=== PATIENT | male | born 1965 | race Caucasian/White ===

== ENCOUNTER 2020-10-01 07:07 | Day surgery (SDC) | payer OTHER ==
[2020-09-27 10:55] VITALS: BMI 39.0
--- NOTE | 2020-09-27 11:11 | RAD REPORT ---
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 COMPARISON: No comparisons FINDINGS: The lungs are grossly clear. The heart is normal in size. There is evidence of several old left lateral rib fractures. Small left pleural effusion or left pleural thickening is present.
[2020-09-27 11:46] LABS: Absolute Lymphocytes (CBC) 1.6 K/uL (0.7-4.9); Basophils % 0.6 % (0-1.3); Hematocrit 44.5 % (39.6-49.0); Lymphocytes % 14.3 % (15.3-44.8); MPV 8.6 fL (7.6-11.3); RBC Red Blood Cell Count 5.04 M/uL (4.33-5.43)
[2020-09-27 11:59] LABS: Potassium 4.1 mmol/L (3.5-5.1)
[2020-09-27 12:37] LABS: Protime INR 1.03
[~2020-10-01 07:07] MED LIST: HEPA 1000U/500MLS 1,000 UNIT/500 ML BAG IV ONE; LIDOCAINE 1% 20 ML MDV ONE; NA CHLORIDE 0.9% 500 ML ONE
[2020-10-01] MEDS ORDERED: MIDAZOLAM HCL 2 MG/2 ML INJ ONE ×3 (07:23→07:59)
[2020-10-01] MEDS ORDERED: FENTANYL CITR 100 MCG/2 ML ONE (07:24)
[2020-10-01] MEDS ORDERED: NA CHLORIDE 0.9% 0 ML ONE (07:24)
[2020-10-01] MEDS ORDERED: ATROPINE SULF 1 MG/10 ML SYR IV ONE (07:24)
[2020-10-01] MEDS ORDERED: ACETYLCYST 20% 4 ML VIAL IH ONE (08:16)
[2020-10-01 10:17] VITALS: BP 140/86; O2SAT 96
[2020-10-01 10:18] VITALS: TEMP 97
--- NOTE | 2020-10-01 19:12 | OP ---
Surgeon: Gabe Lara MD Warp Hand: Kamaljit Bowles. Reason For Admission: Unstable angina. Procedure In Detail: The patient was prepped and draped in routine sterile fashion. Given Versed an d fentanyl for sedation. A 6-Cypriot sheath was introduced in the right common femoral artery success fully. Angiography there was normal. StarClose was used to close the case. Yariel catheters 6-Luis nch left and right were used to cannulate the left main and right main respectively. He was RCA jeffrey nant. He had about a 30% to 40% stenosis in the mid RCA, diffuse plaquing. Circumflex was normal. The left main was normal, but he had a 70% mid LAD stenosis. The first diagonal was a large vessel w ith a 70% to 80% stenosis. The patient tolerated the procedure well. There were no complications. Blood Loss: 5 mL. Postoperative Diagnosis: Severe coronary artery disease. The plan for the staged angioplasty and stent of both the diagonal and LAD. He has a creatinine of a lmost 1.5. He had gotten significant amount of contrast already today to get good views. I will hyd rate him. I will give him Mucomyst. I will hold metformin, bring him back in 48 hours to do the int ervention. Anesthesia: Total conscious sedation was 45 minutes. NB/MODL Voice ID: [id number] Report ID: [id number]
== END 2020-10-01 10:15 | disposition home or self-care (01) ==
LOC: CCL 07:07
DX: I25.110 Atherosclerotic heart disease of native coronary artery with unstable angina pectoris (principal); Z88.3 Allergy status to other anti-infective agents
CPT/HCPCS: 85025; 80048; 36415; 85610; 82947; 85730; 71046; 93454; U0003; C1893; J2250 ×3; J3010; J7040; J1644; J0583

== ENCOUNTER 2020-10-02 06:53 | Emergency (ER) | payer OTHER ==
--- OUTSIDE RECORDS SUMMARY | 2020-10-02 06:56 | XMS REPORT | Continuity of Care Document ---
:1965 Author Organization [facility] t Address [address] [place] [address] Dr. Gonzales. [address] [place] [address] Care Team Providers Name Role Phone Unavailable Unavailable Unavailable Problems This patient has no known problems. Allergies, Adverse Reactions, Alerts This patient has no known allergies or adverse reactions. Medications This patient has no known medications. Procedures This patient has no known procedures. Results This patient has no known results.
[2020-10-02] MEDS ORDERED: NA CHLORIDE 0.9% 1,000 ML ONE (08:09)
[2020-10-02 08:33] LABS: Protime INR 1.01
[2020-10-02 08:35] LABS: Basophils % 0.3 % (0-1.3); Hematocrit 49.2 % (39.6-49.0); Lymphocytes % 8.7 % (15.3-44.8); MPV 8.5 fL (7.6-11.3); RBC Red Blood Cell Count 5.51 M/uL (4.33-5.43)
--- NOTE | 2020-10-02 08:39 | RAD REPORT ---
EXAM DESCRIPTION: Tang Single View10/02/2020 8:31 am CLINICAL HISTORY: Cough COMPARISON: August 2020 FINDINGS: Left pleural thickening with old left rib fractures. The lungs appear clear of acute infiltrate. The heart is normal size IMPRESSION: No acute abnormalities displayed
--- NOTE | 2020-10-02 08:49 | EDPHYS ---
Physician Documentation [facility] Name: Ezequiel Oliveira Age: 55 yrs Sex: Male : 1965 Arrival Date: 10/02/2020 Time: 06:55 Bed 8 Private MD: ED Physician Laurent Sharma HPI: 10/02 08:44 This 55 yrs old Male presents to ER via Ambulatory with complaints of Hives, abdirahman Elevated Pulse- CATH yest 10/01. 08:44 The patient's rash thought to be caused by an unknown cause. The rash is located on the abdirahman body diffusely. The rash can be described as erythematous. Onset: The symptoms/episode began/occurred last night. Associated signs and symptoms: Pertinent positives: burning sensation, itching. Severity of symptoms: At their worst the symptoms were mild moderate in the emergency department the symptoms have improved mildly. The patient presents with a history of heart racing. Context: The symptoms occur at rest. Duration: The patient or guardian reports a single episode, that is still ongoing, but improving. Historical: - Allergies: 07:31 Clindamycin; bb - Home Meds: 07:31 amlodipine oral [Active]; Zoloft Oral [Active]; Wellbutrin Oral [Active]; chol med bb [Active]; fluid pill [Active]; Fish Oil oral oral [Active]; - PMHx: 07:31 CAD; Hyperlipidemia; Hypertension; Depression; bb - PSHx: 07:31 heart cath; bb - Immunization history:: Adult Immunizations up to date. - Social history:: Smoking status: Patient denies any tobacco usage or history of. - Family history:: not pertinent. ROS: 08:44 Constitutional: Negative for fever, chills, and weight loss, Eyes: Negative for injury, abdirahman pain, redness, and discharge, ENT: Negative for injury, pain, and discharge, Neck: Negative for injury, pain, and swelling, Cardiovascular: Negative for chest pain, palpitations, and edema, Respiratory: Negative for shortness of breath, cough, wheezing, and pleuritic chest pain, Abdomen/GI: Negative for abdominal pain, nausea, vomiting, diarrhea, and constipation, Back: Negative for injury and pain, : Negative for injury, bleeding, discharge, and swelling, MS/Extremity: Negative for injury and deformity, Neuro: Negative for headache, weakness, numbness, tingling, and seizure, Psych: Negative for depression, anxiety, suicide ideation, homicidal ideation, and hallucinations, Allergy/Immunology: Negative for hives, rash, and allergies, Endocrine: Negative for neck swelling, polydipsia, polyuria, polyphagia, and marked weight changes, Hematologic/Lymphatic: Negative for swollen nodes, abnormal bleeding, and unusual bruising. 08:44 Skin: Positive for rash. Exam: 08:44 Constitutional: This is a well developed, well nourished patient who is awake, alert, abdirahman and in no acute distress. Head/Face: Normocephalic, atraumatic. Eyes: Pupils equal round and reactive to light, extra-ocular motions intact. Lids and lashes normal. Conjunctiva and sclera are non-icteric and not injected. Cornea within normal limits. Periorbital areas with no swelling, redness, or edema. ENT: Nares patent. No nasal discharge, no septal abnormalities noted. Tympanic membranes are normal and external auditory canals are clear. Oropharynx with no redness, swelling, or masses, exudates, or evidence of obstruction, uvula midline. Mucous membranes moist. Neck: Trachea midline, no thyromegaly or masses palpated, and no cervical lymphadenopathy. Supple, full range of motion without nuchal rigidity, or vertebral point tenderness. No Meningismus. Chest/axilla: Normal chest wall appearance and motion. Nontender with no deformity. No lesions are appreciated. Cardiovascular: Regular rate and rhythm with a normal S1 and S2. No gallops, murmurs, or rubs. Normal PMI, no JVD. No pulse deficits. Respiratory: Lungs have equal breath sounds bilaterally, clear to auscultation and percussion. No rales, rhonchi or wheezes noted. No increased work of breathing, no retractions or nasal flaring. Abdomen/GI: Soft, non-tender, with normal bowel sounds. No distension or tympany. No guarding or rebound. No evidence of tenderness throughout. Back: No spinal tenderness. No costovertebral tenderness. Full range of motion. Male : Normal genitalia with no discharge or lesions. MS/ Extremity: Pulses equal, no cyanosis. Neurovascular intact. Full, normal range of motion. Neuro: Awake and alert, GCS 15, oriented to person, place, time, and situation. Cranial nerves II-XII grossly intact. Motor strength 5/5 in all extremities. Sensory grossly intact. Cerebellar exam normal. Normal gait. Psych: Awake, alert, with orientation to person, place and time. Behavior, mood, and affect are within normal limits. 08:44 Musculoskeletal/extremity: DVT Exam: No signs of deep vein thrombosis. no pain, no swelling, no tenderness, negative Homans' sign noted on exam, no appreciated bluish discoloration, no erythema, no increased warmth. 08:44 Skin: Appearance: Color: normal in color, Temperature: normal temperature, Moisture: normal moisture, petechiae, not noted, ecchymosis, not noted, flushing, not noted, diaphoresis is not appreciated. 08:53 ECG was reviewed by the Attending Physician. [facility] Vital Signs: 07:25 BP 118 / 87; Pulse 112; Resp 18 S; Temp 97.6(TE); Pulse Ox 99% on R/A; Weight 127.01 kg bb (R); Height 5 ft. 11 in. (180.34 cm) (R); Pain 0/10; 07:40 BP 114 / 81; Pulse 107; Resp 22; Pulse Ox 98% ; bp 09:39 BP 127 / 86; Pulse 93; Resp 18; Pulse Ox 98% on R/A; Pain 0/10; ll1 07:25 Body Mass Index 39.05 (127.01 kg, 180.34 cm) MDM: 07:43 Patient medically screened. [facility] 08:46 Differential diagnosis: arrythmia, dehydration. Data reviewed: vital signs, nurses [facility] notes, lab test result(s), EKG, radiologic studies, plain films. 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 Test interpretation: by ED physician or midlevel provider: ECG, plain radiologic studies. Counseling: I had a detailed discussion with the patient and/or guardian regarding: the historical points, exam findings, and any diagnostic results supporting the discharge/admit diagnosis, lab results. 10/02 07:44 Order name: Basic Metabolic Panel; Complete Time: 09:18 [facility] 10/02 07:44 Order name: CBC with Diff; Complete Time: 08:43 [facility] 10/02 07:44 Order name: LFT's; Complete Time: 09:18 [facility] 10/02 07:44 Order name: Magnesium; Complete Time: 09:18 [facility] 10/02 07:44 Order name: NT PRO-BNP; Complete Time: 09:18 [facility] 10/02 07:44 Order name: PT-INR; Complete Time: 08:43 [facility] 10/02 07:44 Order name: Troponin (emerg Dept Use Only); Complete Time: 09:18 [facility] 10/02 07:44 Order name: XRAY Chest (1 view); Complete Time: 08:43 [facility] 10/02 07:44 Order name: TSH; Complete Time: 09:18 [facility] 10/02 07:44 Order name: EKG; Complete Time: 07:45 [facility] 10/02 07:44 Order name: Cardiac monitoring; Complete Time: 07:59 [facility] 10/02 07:44 Order name: EKG - Nurse/Tech; Complete Time: 07:59 [facility] 10/02 07:44 Order name: IV Saline Lock; Complete Time: 08:11 [facility] 10/02 07:44 Order name: Labs collected and sent; Complete Time: 08:12 [facility] 10/02 07:44 Order name: O2 Per Protocol; Complete Time: 08:01 [facility] 10/02 07:44 Order name: O2 Sat Monitoring; Complete Time: 08:01 [facility] EC:53 Rate is 100 beats/min. Rhythm is regular. QRS [place] is Normal. CA interval is normal. [facility] QRS interval is normal. QT interval is normal. No Q waves. T waves are Normal. No ST changes noted. Clinical impression: Normal ECG and No evidence of ischemia. Interpreted by me. Reviewed by me. Administered Medications: 08:11 Drug: NS 0.9% 1000 ml Route: IV; Rate: 1 bolus; Site: right antecubital; ll1 09:40 Follow up: Response: No adverse reaction; IV Status: Completed infusion; IV Intake: ll1 980ml 08:55 Drug: SOLU-Medrol (methylPrednisoLONE) 125 mg Route: IVP; Site: right antecubital; ll1 09:28 Follow up: Response: No adverse reaction; RASS: Alert and Calm (0) ll1 08:55 Drug: Benadryl (diphenhydrAMINE) 25 mg Route: IVP; Site: right antecubital; ll1 09:29 Follow up: Response: No adverse reaction; RASS: Alert and Calm (0) ll1 08:55 Drug: Pepcid (famotidine) 40 mg Route: IVP; Site: right antecubital; 1 09:29 Follow up: Response: No adverse reaction; RASS: Alert and Calm (0) 1 09:05 Drug: predniSONE 60 mg Route: PO; ll1 09:29 Follow up: Response: No adverse reaction; RASS: Alert and Calm (0) ll1 Disposition: 10/02/20 08:49 Discharged to Home. Impression: Urticaria, unspecified - Hives. - Condition is Stable. - Discharge Instructions: Allergies, Adult, Hives, Hives, [id number], Allergies, [id number]. - Prescriptions for Hydroxyzine HCl 50 mg Oral Tablet - take 1 tablet by ORAL route every 8 hours As needed; 20 tablet. Pepcid 20 mg Oral Tablet - take 1 tablet by ORAL route every 12 hours for 10 days; 20 tablet. Prednisone 20 mg Oral Tablet - take 2 tablet by ORAL route once daily for 5 days; 10 tablet. EpiPen 0.3 mg Injection auto- injector - inject 1 pen by INTRAMUSCULAR route as directed Inject into the outer portion of the thigh, through clothing if necessary. Indicated in the emergency treatment of allergic reactions; 1 box. - Medication Reconciliation Form, Thank You Letter, Antibiotic Education, Prescription Opioid Use form. - Follow up: Private Physician; When: 1 - 2 days; Reason: Recheck today's complaints, Continuance of care, Re-evaluation by your physician. Follow up: Gabe Lara MD; When: 1 - 2 days; Reason: Recheck today's complaints, Continuance of care, Re-evaluation by your physician. - Problem is new. - Symptoms have improved. Signatures: Dispatcher [employer] EDMS Laurent Sharma MD MD cha Ballard, Brenda, RN RN Maira Motta RN RN ll1 Corrections: (The following items were deleted from the chart) 09:40 07:44 Urine Dipstick-Ancillary ordered. abdirahman bullard 09:41 08:49 10/02/2020 08:49 Discharged to Home. Impression: Urticaria, unspecified - Hives. ll1 Condition is Stable. Forms are Medication Reconciliation Form, Thank You Letter, Antibiotic Education, Prescription Opioid Use. Follow up: Private Physician; When: 1 - 2 days; Reason: Recheck today's complaints, Continuance of care, Re-evaluation by your physician. Follow up: Gabe Lara; When: 1 - 2 days; Reason: Recheck today's complaints, Continuance of care, Re-evaluation by your physician. Problem is new. Symptoms have improved. abdirahman
--- NOTE | 2020-10-02 08:49 | ER ---
Nurse's Notes [facility] Name: Ezequiel Oliveira Age: 55 yrs Sex: Male : 1965 Arrival Date: 10/02/2020 Time: 06:55 Bed 8 Private MD: Diagnosis: Urticaria, unspecified-Hives Presentation: 10/02 07:25 Chief complaint: Patient states: pt had a heart cath yesterday and woke up in [facility] bb last night. Coronavirus screen: At this time, the client does not indicate any symptoms associated with coronavirus-19. Ebola Screen: No symptoms or risks identified at this time. Onset: The symptoms/episode began/occurred yesterday. Anaphylaxis evaluation, no signs or symptoms of anaphylaxis were noted. Initial Sepsis Screen: Does the patient meet any 2 criteria? No. Patient's initial sepsis screen is negative. Does the patient have a suspected source of infection? No. Patient's initial sepsis screen is negative. Risk Assessment: Do you want to hurt yourself or someone else? Patient reports no desire to harm self or others. Onset of symptoms was October 01, 2020. 07:25 Method Of Arrival: Ambulatory bb 07:25 Acuity: GILDA 4 bb Triage Assessment: 07:35 General: Appears distressed, uncomfortable, obese, Behavior is cooperative, appropriate bp for age, anxious. Pain: Denies pain. EENT: No deficits noted. Neuro: No deficits noted. Cardiovascular: Rhythm is sinus tachycardia. Respiratory: Airway is patent Respiratory effort is even, unlabored, Respiratory pattern is regular, symmetrical. GI: No signs and/or symptoms were reported involving the gastrointestinal system. : No signs and/or symptoms were reported regarding the genitourinary system. Derm: Rash noted that is raised, urticaria, on chest and abdomen. Musculoskeletal: No deficits noted. Historical: - Allergies: 07: Clindamycin; bb - Home Meds: :31 amlodipine oral [Active]; Zoloft Oral [Active]; Wellbutrin Oral [Active]; chol med bb [Active]; fluid pill [Active]; Fish Oil oral oral [Active]; - PMHx: 07:31 CAD; Hyperlipidemia; Hypertension; Depression; bb - PSHx: : heart cath; bb - Immunization history:: Adult Immunizations up to date. - Social history:: Smoking status: Patient denies any tobacco usage or history of. - Family history:: not pertinent. Screenin:39 Abuse screen: Denies threats or abuse. Denies injuries from another. Nutritional bp screening: No deficits noted. Tuberculosis screening: No symptoms or risk factors identified. Fall Risk None identified. Assessment: 07:39 General: SEE TRIAGE NOTE. Respiratory: Airway is patent Breath sounds are clear bp bilaterally. 08:00 Reassessment: No changes from previously documented assessment. Patient and/or family ll1 updated on plan of care and expected duration. Pain level reassessed. 09:00 Reassessment: No changes from previously documented assessment. Patient and/or family ll1 updated on plan of care and expected duration. Pain level reassessed. Patient is alert, oriented x 3, equal unlabored respirations, skin warm/dry/pink. Patient states feeling better. Vital Signs: 07:25 BP 118 / 87; Pulse 112; Resp 18 S; Temp 97.6(TE); Pulse Ox 99% on R/A; Weight 127.01 kg bb (R); Height 5 ft. 11 in. (180.34 cm) (R); Pain 0/10; 07:40 BP 114 / 81; Pulse 107; Resp 22; Pulse Ox 98% ; bp 09:39 BP 127 / 86; Pulse 93; Resp 18; Pulse Ox 98% on R/A; Pain 0/10; ll1 07:25 Body Mass Index 39.05 (127.01 kg, 180.34 cm) ED Course: 06:55 Patient arrived in ED. as 07:28 Triage completed. bb 07:31 Arm band placed on Patient placed in an exam room, on a stretcher, on pulse oximetry. bb 07:32 Domingo Melgar, MICHAEL is Primary Nurse. bp 07:39 Patient has correct armband on for positive identification. Bed in low position. Call bp light in reach. Side rails up X2. 07:43 Laurent Sharma MD is Attending Physician. abdirahman 07:50 Inserted saline lock: 22 gauge in right antecubital area, using aseptic technique. ll1 Blood collected. 08:28 XRAY Chest (1 view) In Process Unspecified. EDMS 08:48 Gabe Lara MD is Referral Physician. abdirahman 09:39 No provider procedures requiring assistance completed. IV discontinued, intact, ll1 bleeding controlled, No redness/swelling at site. Pressure dressing applied. Patient maintains SpO2 saturation greater than 95% on room air. Administered Medications: 08:11 Drug: NS 0.9% 1000 ml Route: IV; Rate: 1 bolus; Site: right antecubital; ll1 09:40 Follow up: Response: No adverse reaction; IV Status: Completed infusion; IV Intake: ll1 980ml 08:55 Drug: SOLU-Medrol (methylPrednisoLONE) 125 mg Route: IVP; Site: right antecubital; ll1 09:28 Follow up: Response: No adverse reaction; RASS: Alert and Calm (0) ll1 08:55 Drug: Benadryl (diphenhydrAMINE) 25 mg Route: IVP; Site: right antecubital; ll1 09:29 Follow up: Response: No adverse reaction; RASS: Alert and Calm (0) ll1 08:55 Drug: Pepcid (famotidine) 40 mg Route: IVP; Site: right antecubital; ll1 09:29 Follow up: Response: No adverse reaction; RASS: Alert and Calm (0) ll1 09:05 Drug: predniSONE 60 mg Route: PO; ll1 09:29 Follow up: Response: No adverse reaction; RASS: Alert and Calm (0) ll1 Intake: 09:40 IV: 980ml; Total: 980ml. ll1 Outcome: 08:49 Discharge ordered by . abdirahman 09:39 Discharged to home ambulatory. ll1 09:39 Condition: stable 09:39 Discharge instructions given to patient, Instructed on discharge instructions, follow up and referral plans. medication usage, Demonstrated understanding of instructions, follow-up care, medications, Prescriptions given X 4. 09:41 Patient left the ED. ll1 Signatures: Dispatcher [employer] EDMS Laurent Sharma MD MD cha Martinez, Amelia as Ballard, Brenda, RN RN bb Peltier, Brian, RN RN bp Lewis, Lynsay, RN RN ll1
[2020-10-02 08:52] LABS: ALT/SGPT 34 U/L (12-78); AST/SGOT 15 U/L (15-37); Albumin 3.6 g/dL (3.4-5.0); Alkaline Phosphatase 121 U/L (45-117); BUN Blood Urea Nitrogen 19 mg/dL (7-18); Bicarbonate 28 mmol/L (21-32); Bilirubin Direct 0.1 mg/dL (0-0.2); Bilirubin Total 0.5 mg/dL (0.2-1.0); Glucose Level 117 mg/dL (74-106); Magnesium 1.9 mg/dL (1.8-2.4); NT PRO-BNP 11 pg/mL (<125); Potassium 4.1 mmol/L (3.5-5.1); Protein, Total 7.6 g/dL (6.4-8.2); Sodium Level 139 mmol/L (136-145); Troponin (Emerg Dept Use Only) < 0.02 ng/mL (0.0-0.045)
[2020-10-02] MEDS ORDERED: FAMOTIDINE 20 MG/2 ML VIAL IV ONE (09:05)
[2020-10-02] MEDS ORDERED: DIPHENHYDRAMINE 50 MG/ML VIAL ONE (09:05)
[2020-10-02] MEDS ORDERED: METHYLPREDNISOLONE 125 MG INJ ONE (09:05)
[2020-10-02] MEDS ORDERED: predniSONE 20 MG TAB ONE (09:21)
[2020-10-02 09:47] VITALS: TEMP 97.6
[2020-10-02 09:49] VITALS: O2SAT 98
[2020-10-02 09:51] VITALS: BP 127/86
--- NOTE | 2020-10-03 07:20 | EKG ---
Test Date: 2020-10-02 Test Time: 07:56:18 Personal Financial Advisor: ARMIDAL MEASUREMENT RESULTS: Intervals: Rate: 100 NC: 150 QRSD: 94 QT: 340 QTc: 438 [place]: P: 38 NC: 150 QRS: 39 T: 4 INTERPRETIVE STATEMENTS: Normal sinus rhythm Normal ECG No previous ECG available for comparison Electronically Signed On 10-03-20 07:18:08 CDT by Gabe Lara
== END 2020-10-02 09:41 | disposition home or self-care (01) ==
LOC: ER 06:53
DX: L50.9 Urticaria, unspecified (principal); I10 Essential (primary) hypertension; I25.10 Atherosclerotic heart disease of native coronary artery without angina pectoris; E78.5 Hyperlipidemia, unspecified; F32.9 Major depressive disorder, single episode, unspecified; Z88.3 Allergy status to other anti-infective agents
CPT/HCPCS: 96361; 93005; 85025; 80048; 36415; 83735; 85610; 80076; 84443; 84484; 83880; 71045; 96375; 96374; 99285; J1200; J7512; J7030; J2930

== ENCOUNTER 2020-10-03 06:56 | Day surgery (SDC) | payer OTHER ==
[2020-10-03] MEDS ORDERED: NA CHLORIDE 0.9% 500 ML ONE (07:18)
[2020-10-03] MEDS ORDERED: MIDAZOLAM HCL 2 MG/2 ML INJ ONE ×3 (07:50→08:04)
[2020-10-03] MEDS ORDERED: HEPA 1000U/500MLS 1,000 UNIT/500 ML BAG IV ONE (07:50)
[2020-10-03] MEDS ORDERED: DIPHENHYDRAMINE 50 MG/ML VIAL ONE (07:50)
[2020-10-03] MEDS ORDERED: METHYLPREDNISOLONE 125 MG INJ ONE (07:50)
[2020-10-03] MEDS ORDERED: NITROGLYCERIN 100 MCG/ML SYR (for cath lab use only) IV ONE (07:51)
[2020-10-03] MEDS ORDERED: NA CHLORIDE 0.9% 50 ML ONE (07:51)
[2020-10-03] MEDS ORDERED: ATROPINE SULF 1 MG/10 ML SYR IV ONE (07:51)
[2020-10-03] MEDS ORDERED: FENTANYL CITR 100 MCG/2 ML ONE ×2 (07:51→08:04)
[2020-10-03] MEDS ORDERED: ACETYLCYST 20% 4 ML VIAL IH ONE (07:53)
[2020-10-03] MEDS ORDERED: ASPIRIN 325 MG TAB ONE (08:09)
[2020-10-03] MEDS ORDERED: PRASUGREL (EFFIENT) 10 MG TAB ONE (08:10)
[2020-10-03] MEDS ORDERED: LIDOCAINE 1% 20 ML MDV ONE (08:52)
[2020-10-03 09:10] VITALS: TEMP 97.5
[2020-10-03] MEDS ORDERED: predniSONE 20 MG TAB PO ONE (09:28)
[2020-10-03] MEDS ORDERED: DIPHENHYDRAMINE 25 MG TAB/CAP PO ONE (09:28)
[2020-10-03 16:19] VITALS: BP 117/67; O2SAT 99
--- NOTE | 2020-10-03 19:29 | OP ---
Date of Procedure: 10/03/2020 Surgeon: Gabe Lara MD Stope Miner: Mr. Kamaljit Bowles. Procedure Performed: Selective coronary arteriogram, primary stent of the mid LAD, primary stent of the mid diagonal. History Of Present Illness: Mr. Oliveira had a catheterization earlier this week. He was found to have 70% to 80% stenosis in the mid diagonal and mid LAD, was brought back today as a staged procedure be cause of elevated creatinine. Today, he was brought to the research laboratory manager as an outpatient, prepped and dr aped in routine sterile fashion, given Versed and fentanyl for sedation. Access obtained through the right femoral artery common with 10 cc of Xylocaine in the Seldinger technique. Angiography there w as normal. StarClose was used to close the case. An XB LAD 3.5 guide with side hole was used to can nulate the left main. A [place] wire 0.014 extra support was initially used to cross the diagonal les ion successfully. A 3.0 x 60 mm Synergy stent was placed in the diagonal was 0% residual. There was some distal small vessel disease in the distal diagonal that was not intervened with. Following roland t stent, the wire was moved back into the left main. We crossed the LAD and a 3.5 x 12 mm LAD Synerg y stent was placed with 0% residual. Intracoronary nitroglycerin of 100 mcg was given before final p icture that showed 0% residual. No dissection. There were no complications. Blood Loss: 10 cc. Postoperative Diagnosis: Status post successful primary stent of the left anterior descending and th e diagonal. Anesthesia: Total conscious sedation was 60 minutes. The patient received Angiomax, Effient, aspirin. He will stay in the hospital till 4 p.m. today. He will go home after 2 hours of bedrest. I will see him in the office in 2 weeks. He will be holding his metformin. I will continue his home medication, except I will increase the Crestor to 40 mg onc e a day. Continue aspirin, Plavix, probably a low-dose beta-shruti. I will see him in the office i n 2 weeks. CLAUDINE/JUNGL Voice ID: [id number] Report ID: [id number]
== END 2020-10-03 16:00 | disposition home or self-care (01) ==
LOC: CCL 06:56
DX: I25.110 Atherosclerotic heart disease of native coronary artery with unstable angina pectoris (principal); I10 Essential (primary) hypertension; E78.2 Mixed hyperlipidemia; E11.9 Type 2 diabetes mellitus without complications; E66.9 Obesity, unspecified; Z68.39 Body mass index [BMI] 39.0-39.9, adult; Z88.3 Allergy status to other anti-infective agents; Z82.49 Family history of ischemic heart disease and other diseases of the circulatory system
CPT/HCPCS: 36415; 82565; 82947; 84520; 92928; 92929; C1893; C1725; C1877; J7512; J2250 ×3; J3010 ×2; J0583; J7040; J1644; J2930; 85347; J1200

== ENCOUNTER → 2023-07-12 | Emergency (ER) | payer OTHER ==
[~2023-07-12] MED LIST changes: -HEPA 1000U/500MLS 1,000 UNIT/500 ML BAG IV ONE; +KETOROLAC 30 MG/ML INJ ONE; -LIDOCAINE 1% 20 ML MDV ONE; -NA CHLORIDE 0.9% 500 ML ONE
--- OUTSIDE RECORDS SUMMARY | 2023-07-12 11:14 | XMS REPORT | Continuity of Care Document ---
Author Name Unknown Address [address] [facility] [place] [address] [facility] thconnect Address [address] [facility] [place] [address] Care Team Providers Care Perinatal Instructor Name Role Phone Jennifer Arrington Primary Care Physician + [phone] Vivian Sloan PA-C Attending Clinician [phone] Unknown, Attending Attending Clinician Unavailab VIVIAN Hunt Attending Clinician Unavailable Tucker Ly Attending Clinician Unavailable Jennifer Arrington Admitting Clinician Unavaila ble Payers Payer Name Policy Type Policy Number Effective Date Expirati on Date Source [employer] O [id number] 2015 00:00:00 Problems Condition Name Condition Details Condition Category Status Onset Date Resolution Date Last Treatment Date Treating Clinician Comments Source Tonsil, abscess Tonsil, abscess Disease Active 02-12 00:00: 00 [facility] Obesity (BMI 30-39.9) Obesity (BMI 30-39.9) Disease Active 02-09 00:00: 00 [facility] Tonsilliti s Tonsilliti s Disease Active 02-08 00:00: 00 [facility] Depression Depression Disease Active 01-20 00:00: 00 [facility] Erectile dysfunctio n Erectile dysfunctio n Disease Active 01-20 00:00: 00 [facility] Essential hypertensi on Essential hypertensi on Disease Active 01-20 00:00: 00 [facility] Hyperlipid emia Hyperlipid emia Disease Active 01-20 00:00: 00 [facility] Hypogonadi sm, male Hypogonadi sm, male Disease Active 01-20 00:00: 00 [facility] Nocturia Nocturia Disease Active 01-20 00:00: 00 [facility] Allergies, Adverse Reactions, Alerts Allergy Name Allergy Type Status Severity Reaction(s) Onset Date Inactive Date Treating Clinician Comments Source Clindamy parvez Drug Allergy Active Hives 02-13 00:00: 00 [facility] CLINDAMY PARVEZ DRUG INGREDI Active Med Hives 02-13 00:00: 00 [facility] Social History Social Habit Start Date Stop Date Quantity Comments Source History of tobacco use Snuff User [facility] Tobacco use and exposure 2023-07-08 00:00:00 2023-07-08 00:00:00 Former smokeless tobacco user [facility] Alcohol intake 2023-07-08 00:00:00 2023-07-08 00:00:00 .86 /d [facility] History of Social function 2023-07-08 00:00:00 2023-07-08 00:00:00 [facility] Tobacco Comment 2023-07-08 00:00:00 2023-07-08 00:00:00 1/4 can snuff daily quit 6 months ago [facility] Sex Assigned At 1965 00:00:00 1965 00:00:00 [facility] Smoking Status Start Date Stop Date Source Never smoked tobacco [facility] Medications Ordered Medication Name Filled Medication Name Start Date Stop Date Current Medication? Ordering Clinician Indication Dosage Frequency Signature (SIG) Comments Components Source benazepril 40 mg tablet 07-08 20:42: 21 Yes 40mg Take 1 tablet by mouth in the morning. [facility] metFORMIN 1,000 mg tablet 07-08 20:42: 21 Yes 1000mg Take 1 tablet by mouth in the morning and 1 tablet in the evening. Take with meals. [facility] chlorthalid one 25 mg tablet 07-08 20:42: 21 Yes 12.5mg Take 0.5 tablets by mouth in the morning. [facility] buPROPion SR 150 mg SR tablet 07-08 20:42: 21 Yes 150mg Take 1 tablet by mouth in the morning. [facility] amLODIPine- benazepriL 10-40 mg per capsule 06-18 00:00: 00 Yes 1{capsu le} Take 1 capsule by mouth in the morning. [facility] metoprolol succinate XL 25 mg 24 hr tablet 06-04 00:00: 00 Yes [facility] SERTraline 100 mg tablet 2022-05 00:00: 00 Yes 100mg Take 1 tablet by mouth in the morning. [facility] predniSONE 20 mg tablet 02-15 00:00: 00 Yes 40mg Take 2 tablets by mouth daily. [facility] benzocaine- menthol lozenge 02-09 00:00: 00 Yes 1{lozen ge} Take 1 Lozenge by mouth every 4 (four) hours as needed for Sore throat. [facility] pantoprazol e (PROTONIX) 20 mg EC tablet 2015-05 00:00: 00 Yes TAKE 1 TABLET BY MOUTH DAILY FOR 30 DAYS. [facility] CRESTOR 20 mg tablet 11-10 00:00: 00 Yes TAKE 1 TABLET BY MOUTH ONCE A DAY [facility] CIALIS 5 mg tablet 14 00:00: 00 Yes TAKE 1 TABLET BY MOUTH EVERY DAY [facility] Immunizations Ordered Immunization Name Filled Immunization Name Date Status Comments Source SARS-COV-2 COVID-19 MODERNA 12+ YRS VACCINE Unknown Completed [facility] SARS-COV-2 COVID-19 MODERNA 12+ YRS VACCINE Unknown Completed [facility] Vital Signs Vital Name Observation Time Observation Value Comments S andrade Systolic blood pressure 2023-07-09 02:42:00 134 mm[Hg] [facility] Diastolic blood pressure 2023-07-09 02:42:00 99 mm[Hg] [facility] Heart rate 2023-07-09 02:42:00 111 /min [facility] Body temperature 2023-07-09 02:42:00 37.06 Fay [facility] Respiratory rate 2023-07-09 02:42:00 17 /min [facility] Body weight 2023-07-09 02:42:00 121.11 kg [facility] BMI 2023-07-09 02:42:00 37.24 kg/m2 [facility] Oxygen saturation in Arterial blood by Pulse oximetry 2023-07-09 02:42:00 95 /min [facility] Procedures Procedure Date / Time Performed Performing Clinicia n Source POCT MOLECULAR FLU 2023-07-09 02:44:00 Unknown, Attend [facility] POCT SARS-COV-2 ANTIGEN (BINAX NOW) 2023-07-09 02:34:00 Vivian Sloan [facility] Encounters Start Date/Time End Date/Time Encounter Type Admission Type Attending Clinicians Care Facility Care Department Encounter ID Source 2023-07-08 20:20:00 2023-07-08 20:40:00 Urgent Care Vivian Sloan Unknown, Attending [facility] [id number] [facility] 2023-07-08 20:20:00 2023-07-08 20:20:00 Outpatient VIVIAN DOWNING [facility] [id number] [facility] 2022-09-03 13:44:00 2022-09-03 13:44:00 Outpatient Tucker Corrigan [facility] RADI [id number] 2020-08-04 08:25:00 2020-08-04 08:25:00 Outpatient [facility] [id number] [facility] 2020-07-07 08:10:00 2020-07-07 08:10:00 Outpatient [facility] [id number] [facility] Results Test Description Test Time Test Comments Results Result Co mments Source [facility] (BINAX NOW)2023-07-09 02:49:00* Test Item Value Reference Range Interpretation Comme nts POCT SARS-COV-2 ANTIGEN (bacilio t code = 59098-1) Not Detected Not Detected On board controls acceptable with C Line (test code = 3574) Yes Lab Interpretation (test cod e = [id number]) Normal [facility]- MRI UPPER EX W/O CONT [id number] 22:44:00 [facility] 1965 Sex: M FAX: Tucker Topete MD [phone] Camps: PM St: REG FAX: Jennifer Robertson [phone] Name: JULIO CESAR OLIVEIRA [facility] : 1965 Age/S: 57/M [address] Unit #: [id number] Loc: [place] [address] Phys: Tucker Ly MD Acct: [id number] Dis Date: Status: REG CLI PHONE #: [phone] Exam Date: 1537 FAX #: Reason: STRAIN MUSCLE /FASC/TEND PRT BICEPS, RIG EXAMS: CPT: [id number] MRI UPPER EX W/[place] [id number] EXAM: - MRI UPPER EX W/O CONT RT LOCATION: H47 HISTORY: STRAIN MUSCLE /FASC/TEND PRT BICEPS, RIG COMPARISON: None available at the time of interpretation. TECHNIQUE: Multiplanar multisequence MR images of the right elbow were obtained without intravenous contrast. FINDINGS:Ligaments: Ulnar collateral ligament: The anterior band of the ulnar collateral ligament is intact.Radial collateral ligament: Intact. Lateral ulnar collateral ligament: Intact. Other ligaments and capsule: Intact. Muscles: Common extensor origin tendinosis. Flexor origin is intact. No signal abnormality in the muscles. Cartilage: No osteochondral defects. Bone: No fractures identified. Visualized bone marrow signal is within normal limits. Soft tissue: Within normal limits. No abnormality of the major neurovascular structures. IMPRESSION: Comment extensor origin tendinosis. at 2244 Reported and signed by: ISAIAS YEPEZ M.D. PAGE 1 Signed Report (CONTINUED) FAX: Tucker Hernández MD [phone] Camps: PM St: REG FAX:Jennifer Robertson [phone] Name: JULIO CESAR OLIVEIRA [place] : 1965 Age/S: 57/M [address] Unit #: [id number] Loc: [place] [address] Phys: Tucker Ly MD Acct: [id number] Dis Date: Status: REG CLI PHONE #: [phone] Exam Date: 09/03/2022 1539 FAX #: Reason: STRAIN MUSCLE /FASC/TEND PRT BICEPS, RIG EXAMS: CPT: [id number] [place] UPPER [place] W/[place] [id number] (Continued) CC: Tucker Ly MD; Jennifer Arrington NP Technologist: Michelle Greer, RT(R)(MR) Transcribed Date/Time/By: 09/03/2022 (623) :[email or web address] Orig Print D/T: S: 09/03/2022 (8620) PAGE 2 Signed Report
[2023-07-12 12:16] LABS: Hematocrit 43.1 % (39.6-49.0); Lymphocytes % 17.6 % (15.3-44.8); MCV 88.2 fL (80-100); MPV 7.6 fL (7.6-11.3); Platelets 214 thou/uL (152-406); RBC Red Blood Cell Count 4.89 M/uL (4.33-5.43)
[2023-07-12 12:17] LABS: Absolute Lymphocytes (CBC) 1.4 K/uL (0.7-4.9)
--- NOTE | 2023-07-12 12:32 | RAD REPORT ---
EXAM DESCRIPTION: Angit Single View07/12/2023 11:57 am CLINICAL HISTORY: COUGH COMPARISON: Chest Single View dated 10/02/2020; Chest Pa And Lat (2 Views) dated 09/27/2020 TECHNIQUE: Portable AP view of the chest. FINDINGS: The lungs are clear apart from stable chronic opacification of the left costophrenic angle which may represent small loculated effusion or pleural thickening. No pneumothorax or effusion. Th e cardiomediastinal contours are unremarkable. IMPRESSION: No acute cardiopulmonary process. Findings as above.
[2023-07-12 12:33] LABS: Albumin 3.8 g/dL (3.4-5.0); Bilirubin Total 0.4 mg/dL (0.2-1.0); Potassium 3.9 mEq/L (3.5-5.1); Protein, Total 7.5 g/dL (6.4-8.2)
--- NOTE | 2023-07-12 13:44 | ER ---
Nurse's Notes [facility] Name: Ezequiel Oliveira Age: 58 yrs Sex: Male : 1965 Arrival Date: 07/12/2023 Time: 11:12 Bed 12 Private MD: Diagnosis: Acute pharyngitis, unspecified Presentation: 07/12 11:29 Chief complaint: Patient states: Sore throat and body aches since . Skin nj1 sensitivity. Coronavirus screen: Vaccine status: Patient reports receiving the 2nd dose of the covid vaccine. Ebola Screen: Patient denies travel to an Ebola-affected area in the 21 days before illness onset. Initial Sepsis Screen: Does the patient meet any 2 criteria? HR > 90 bpm. No. Patient's initial sepsis screen is negative. Does the patient have a suspected source of infection? No. Patient's initial sepsis screen is negative. Risk Assessment: Do you want to hurt yourself or someone else? Patient reports no desire to harm self or others. Onset of symptoms was July 08, 2023. 11:29 Method Of Arrival: Ambulatory nj1 11:29 Acuity: GILDA 3 nj1 Historical: - Allergies: 11:32 Clindamycin; nj1 - PMHx: 11:32 CAD; Depression; Hyperlipidemia; Hypertension; nj1 - PSHx: 11:32 Stented artery; Stented artery; nj1 - Immunization history:: Client reports receiving the 2nd dose of the Covid vaccine. - Social history:: Smoking status: Patient denies any tobacco usage or history of. Assessment: 13:37 Reassessment: Patient is alert, oriented x 3, equal unlabored respirations, skin aa5 warm/dry/pink. 13:50 Reassessment: Patient is alert, oriented x 3, equal unlabored respirations, skin aa5 warm/dry/pink. Vital Signs: 11:29 BP 116 / 88; Pulse 100; Resp 18; Temp 97.8(O); Pulse Ox 98% on R/A; nj1 ED Course: 11:14 Patient arrived in ED. ec2 11:14 Haroon Johnson MD is Attending Physician. ec2 11:32 Triage completed. nj1 11:33 Arm band placed on left wrist. nj1 11:35 Strep Sent. nj1 11:59 CXR XRAY In Process Unspecified. EDMS 12:09 Strep Sent. nj1 12:09 CMP Sent. bc6 12:09 CBC with Diff Sent. bc6 12:09 Inserted saline lock: 20 gauge in left forearm, using aseptic technique. Blood bc6 collected. 13:50 No provider procedures requiring assistance completed. IV discontinued, intact, aa5 bleeding controlled, No redness/swelling at site. Pressure dressing applied. Administered Medications: 13:37 Drug: Ketorolac IVP 15 mg IVP once Route: IVP; Site: left forearm; aa5 13:50 Follow up: Response: No adverse reaction aa5 Outcome: 13:44 Discharge ordered by . ec2 13:50 Discharged to home ambulatory, aa5 13:50 Condition: good 13:50 Discharge instructions given to patient, Instructed on discharge instructions, follow up and referral plans. medication usage, Demonstrated understanding of instructions, follow-up care, medications, Prescriptions given X 1, 13:53 Patient left the ED. aa5 Signatures: Dispatcher [employer] EDPatricia Dye, RN RN aa5 [place] bc6 Hyacinth Horta RN RN nj1 Haroon Johnson MD MD ec2
--- NOTE | 2023-07-12 13:44 | EDPHYS ---
Physician Documentation [facility] Name: Ezequiel Oliveira Age: 58 yrs Sex: Male : 1965 Arrival Date: 07/12/2023 Time: 11:12 Bed 12 Private MD: ED Physician Haroon Johnson HPI: 07/12 11:42 This 58 yrs old Male presents to ER via Ambulatory with complaints of URI ec2 s/s, . 11:43 Patient arrives today for evaluation of URI signs symptoms as well as myalgias. Patient ec2 reports he has been experiencing approximately 4 days of symptoms. Patient reports he has been having cough and congestion as well as sore throat, denies any decreased p.o. intake, reports subjective fevers and chills. Reports no vomiting. Does report he has had bouts of diarrhea for this timeframe as well. Reports no abdominal pain.. 11:45 Additionally of note patient has tested at home for COVID and flu multiple times and ec2 has had negative testing.. Historical: - Allergies: 11:32 Clindamycin; nj1 - PMHx: 11:32 CAD; Depression; Hyperlipidemia; Hypertension; nj1 - PSHx: 11:32 Stented artery; Stented artery; nj1 - Immunization history:: Client reports receiving the 2nd dose of the Covid vaccine. - Social history:: Smoking status: Patient denies any tobacco usage or history of. ROS: 11:43 Constitutional: as per hpi ec2 Exam: 11:44 Constitutional: GEN: NAD Head: atraumatic Eyes: EOMI Ears: External ears are normal. ec2 Mouth: Posterior pharynx with erythema, no exudates appreciated. CV: Tachycardia LUNGS: no respiratory distress ABD: non-distended, soft, nontender, not guarding, not rigid SKIN: no evidence of rashes MSK: no evidence of trauma NEURO: moves all extremities equally Vital Signs: 11:29 BP 116 / 88; Pulse 100; Resp 18; Temp 97.8(O); Pulse Ox 98% on R/A; nj1 MDM: 11:27 Patient medically screened. ec2 11:44 Data reviewed: vital signs. ED course: Patient arrives today for URI signs and ec2 symptoms. Examination remarkable for well-appearing nontoxic individual is otherwise in no acute distress. Will obtain strep swab, lab work and chest x-ray. Currently considering process for strep pharyngitis, low suspicion for bacteremia. Will treat the patient with Toradol as well.. 12:16 ED course: EKG independently reviewed and interpreted by me, shows normal sinus rhythm, ec2 rate of 86, no acute ST segment elevations, nonconcerning intervals.. 13:07 ED course: Metabolic profile shows renal dysfunction with a creatinine 1.48 and a GFR ec2 55. CBC is reassuring. Chest x-ray shows no acute intrathoracic process. Strep swab negative. . 13:43 ED course: On reassessment patient is well-appearing in no acute distress. Will ec2 discharge home with prescription for steroids as needed. Return precautions given.. 02 11:34 Order name: CBC with Diff; Complete Time: 13:07 ec2 07/12 11:34 Order name: CMP; Complete Time: 13:07 ec2 07/12 11:34 Order name: Strep ec2 07/12 12:16 Order name: Throat Culture [facility] 07/12 11:34 Order name: CXR XRAY; Complete Time: 13:07 ec2 07/12 11:34 Order name: EKG - Nurse/Tech; Complete Time: 12:09 ec2 Administered Medications: 13:37 Drug: Ketorolac IVP 15 mg IVP once Route: IVP; Site: left forearm; aa5 13:50 Follow up: Response: No adverse reaction aa5 Disposition Summary: 07/12/23 13:44 Discharge Ordered Notes: Location: Home ec2 Condition: Stable ec2 Diagnosis - Acute pharyngitis, unspecified ec2 Followup: ec2 - With: Private Physician - When: - Reason: Recheck today's complaints Discharge Instructions: - Discharge Summary Sheet ec2 - Pharyngitis ec2 Forms: - Medication Reconciliation Form ec2 - Thank You Letter ec2 - Antibiotic Education ec2 - Prescription Opioid Use ec2 - Patient Portal Instructions ec2 - Leadership Thank You Letter ec2 Prescriptions: - Prednisone 20 mg Oral Tablet - take 1 tablet ORAL route once daily for 5 days; 5 tablet; Refills: 0, Product ec2 Selection Permitted Signatures: Dispatcher [employer] Patricia Riley RN RN aa5 Hyacinth Horta RN RN nj1 Johnson, Haroon, MD MD ec2
[2023-07-12 14:22] VITALS: BP 116/88; TEMP 97.8; O2SAT 98
== END ==
LOC: ER 11:12
DX: J02.9 Acute pharyngitis, unspecified (principal); R05.9 Cough, unspecified; I10 Essential (primary) hypertension; Z88.3 Allergy status to other anti-infective agents
CPT/HCPCS: 36415; 71045; 80053; 85025; 87070; 87081; 93005